=== PATIENT | female | born 1950 | race Hispanic/Latino ===

== ENCOUNTER → 2020-06-25 | Outpatient (CLI) | payer MEDICARE, OTHER ==
[~2020-06-25] MED LIST: ATOR40TA71 PO; BENA40TA9 PO; DULA0.75 SQ; GLYB1TAB32 PO; HYDR12.530 PO; LEVO100T12 PO; LINA5TAB PO
== END | disposition home or self-care (01) ==
LOC: RAH 11:11
PROVIDERS: ATTEND Family Medicine
DX: Z12.31 Encounter for screening mammogram for malignant neoplasm of breast (principal)
CPT/HCPCS: 77067

== ENCOUNTER 2021-07-22 05:03 | Emergency (ER) | payer MEDICARE ==
[~2021-07-22] VITALS: Ht 152.4 cm; Wt 68.0 kg
[2021-07-22 05:12] VITALS: BP 166/74
[2021-07-22 05:27] LABS: BASOPHILS % (AUTO) 0.2 % (0.0-5.0); EOSINOPHILS % (AUTO) 1.5 % (0.0-8.0); HEMATOCRIT 37.6 % (36-48); LYMPHOCYTES % (AUTO) 19.7 % (21.0-51.0); MEAN CORPUSCULAR HEMOGLOBIN 30.9 pg (27.0-33.0); MEAN CORPUSCULAR VOLUME 90.8 fL (79-99); MONOCYTES % (AUTO) 5.8 % (3.0-13.0); NEUTROPHILS % (AUTO) 72.5 % (40.0-77.0); PLATELET COUNT (AUTO) 228 K/uL (130-400); RED BLOOD CELL COUNT(AUTO) 4.14 MIL/uL (4.00-5.50); RED CELL DISTRIBUTION WIDTH 13.7 % (11.0-15.5); WHITE BLOOD COUNT (AUTO) 11.7 K/uL (4.8-10.8)
[2021-07-22 05:34] LABS: CREATININE 0.7 mg/dL (0.5-1.5); POTASSIUM 3.5 mmol/L (3.5-5.1)
[2021-07-22 05:39] LABS: ALBUMIN 3.8 g/dL (3.5-5.0); BILIRUBIN,TOTAL 1.1 mg/dL (0.2-1.0); TOTAL PROTEIN, SERUM 7.3 g/dL (6.0-8.3)
[2021-07-22 05:48] VITALS: BP 147/46
[2021-07-22 05:49] LABS: APPEARANCE,URINE Cloudy (CLEAR); BILIRUBIN,URINE Negative (NEGATIVE); COLOR,URINE Yellow (YELLOW); GLUCOSE, URINE (UA) Negative (NEGATIVE); KETONES,URINE 15 mg/dL (NEGATIVE); LEUKOCYTE ESTERASE ,URINE Small (NEGATIVE); NITRATE,URINE Negative (NEGATIVE); OCCULT BLOOD,URINE Negative (NEGATIVE); PROTEIN,URINE Trace mg/dL (NEGATIVE)
[2021-07-22 05:57] LABS: B-TYPE NATRIURETIC PEPTIDE 24 pg/mL (0-100)
[2021-07-22 06:02] LABS: BACTERIA,URINE None Seen /HPF (None Seen); CALCIUM OXALATE CRYSTALS,UR Many /LPF (None Seen)
[2021-07-22 06:03] LABS: SQUAMOUS EPITHELIAL CELL,UR Moderate /HPF (0-2); URIC ACID CRYSTALS,URINE Moderate /LPF (None Seen)
[2021-07-22] MEDS ORDERED: KETOROLAC 30MG VIAL (30MG/ML) IV ONE (06:30)
[2021-07-22] MEDS ORDERED: LIDOCAINE 5% TOPICAL PATCH TP ONE (06:30)
[2021-07-22] MEDS ORDERED: ACETAMINOPHEN 325 MG TAB PO ONE (06:30)
[2021-07-22 06:36] VITALS: BP 143/51
[2021-07-22] MEDS ORDERED: NAPR-1180 PO (08:02)
[2021-07-22] MEDS ORDERED: LIDOP TD (08:02)
== END 2021-07-22 08:16 | disposition home or self-care (01) ==
LOC: EDH 05:03
DX: R07.89 Other chest pain (principal); E78.00 Pure hypercholesterolemia, unspecified; I10 Essential (primary) hypertension; I25.10 Atherosclerotic heart disease of native coronary artery without angina pectoris; Z79.1 Long term (current) use of non-steroidal anti-inflammatories (NSAID); Z79.84 Long term (current) use of oral hypoglycemic drugs; Z79.899 Other long term (current) drug therapy
CPT/HCPCS: 36415; 71046; 80053; 81001; 82550; 83880; 84484 ×2; 84550; 85025; 87088; 93005 ×2; 96374; 99285; J1885

== ENCOUNTER 2023-05-31 15:41 | Emergency (ER) | payer MEDICARE ==
[~2023-05-31] VITALS: Ht 152.4 cm; Wt 67.1 kg
[~2023-05-31 15:41] MED LIST changes: -BENA40TA9 PO; +BENA40TA92 PO; +GLYB-173 PO; -GLYB1TAB32 PO; +LIDOP TD; +NAPR-1180 PO
[2023-05-31 16:32] LABS: BASOPHILS % (AUTO) 0.2 % (0.0-5.0); EOSINOPHILS % (AUTO) 1.1 % (0.0-8.0); HEMATOCRIT 34.4 % (36-48); LYMPHOCYTES % (AUTO) 32.4 % (21.0-51.0); MEAN CORPUSCULAR HEMOGLOBIN 31.2 pg (27.0-33.0); MEAN CORPUSCULAR HGB CONC 34.3 g/dL (32.0-36.0); MONOCYTES % (AUTO) 4.7 % (3.0-13.0); NEUTROPHILS % (AUTO) 61.1 % (40.0-77.0); PLATELET COUNT (AUTO) 289 K/uL (130-400); RED BLOOD CELL COUNT(AUTO) 3.78 MIL/uL (4.00-5.50); WHITE BLOOD COUNT (AUTO) 8.5 K/uL (4.8-10.8)
[2023-05-31] MEDS ORDERED: FAMOTIDINE 20MG VIAL IV ONE (17:00)
[2023-05-31] MEDS ORDERED: LACTATED RINGERS 1000ML 1,000 ML IV ONE (17:00)
[2023-05-31] MEDS ORDERED: ALBUTEROL 0.083% 2.5 MG/3 ML INH IH ONE (17:00)
[2023-05-31] MEDS ORDERED: METOCLOPRAMIDE 10 MG/2 ML VIAL IVP ONE (17:00)
[2023-05-31] MEDS ORDERED: KETOROLAC 30MG VIAL (30MG/ML) IVP ONE (17:00)
[2023-05-31] MEDS ORDERED: SOLU-MEDROL 125MG VIAL IVP ONE (17:00)
[2023-05-31 17:25] VITALS: PULSE 63; RESP 16
[2023-05-31 17:39] LABS: CREATININE 0.8 mg/dL (0.5-1.5); POTASSIUM 3.7 mmol/L (3.5-5.1)
[2023-05-31 17:42] LABS: ALBUMIN 3.3 g/dL (3.5-5.0); TOTAL PROTEIN, SERUM 7.1 g/dL (6.0-8.3)
[2023-05-31] MEDS ORDERED: FLUT16H NASAL (17:48)
[2023-05-31] MEDS ORDERED: ALBUHFA IH (17:48)
[2023-05-31] MEDS ORDERED: BENZ-39 PO (17:48)
[2023-05-31 18:01] VITALS: BP 141/56; PULSE 67; RESP 16; O2SAT 97
== END 2023-05-31 18:15 | disposition home or self-care (01) ==
LOC: EDH 15:41
DX: U07.1 COVID-19 (principal); J06.9 Acute upper respiratory infection, unspecified; E11.9 Type 2 diabetes mellitus without complications; E78.00 Pure hypercholesterolemia, unspecified; I10 Essential (primary) hypertension; Z79.84 Long term (current) use of oral hypoglycemic drugs; Z79.899 Other long term (current) drug therapy
CPT/HCPCS: 99284; 96374; 96375; 71045; 96361; 87635; 80053; 85025; 87804 ×2; 83605; 36415; 94640; C9803; J7120; J3490; J2930; J1885; J2765

== ENCOUNTER → 2024-05-24 | Outpatient (CLI) | payer MEDICARE ==
[~2024-05-24] MED LIST changes: +ALBUHFA IH; +BENZ-39 PO; +FLUT16H NASAL
== END | disposition home or self-care (01) ==
LOC: RAH 13:37
PROVIDERS: ATTEND Family Medicine
DX: Z12.31 Encounter for screening mammogram for malignant neoplasm of breast (principal)
CPT/HCPCS: 77067

== ENCOUNTER → 2025-05-25 | Outpatient (CLI) | payer MEDICARE | END | disposition home or self-care (01) | LOC: RAH 09:56 | PROVIDERS: ATTEND Internal Medicine Nephrology | DX: Z12.31 Encounter for screening mammogram for malignant neoplasm of breast (principal) | CPT/HCPCS: 77067 ==